=== PATIENT | male | born 1945 | race Hispanic/Latino ===

== ENCOUNTER 2016-10-31 16:50 | Emergency (ER) | payer MEDICARE ==
[2016-10-31 18:01] LABS: Hemoglobin 12.8 gm/dl (11.8-15.2); Mean Corpuscular HGB Conc 33 % (32-34); Mean Corpuscular Hemoglobin 31 pg (28-32); Mean Corpuscular Volume 96 fl (84-94); Platelet Count 215 K/mm3 (140-440); Red Blood Count 4.08 M/mm3 (3.65-5.03); Red Cell Distribution Width 14.8 % (13.2-15.2); White Blood Count 14.1 K/mm3 (4.5-11.0)
[2016-10-31 18:18] LABS: Anion Gap 19 mmol/L; BUN/Creatinine Ratio 23.63; Blood Urea Nitrogen 26 mg/dL (9-20); Calcium 9.3 mg/dL (8.4-10.2); Carbon Dioxide 25 mmol/L (22-30); Chloride 101.6 mmol/L (98-107); Glucose 164 mg/dL (75-100); Potassium 4.3 mmol/L (3.6-5.0); Sodium 141 mmol/L (137-145)
--- NOTE | 2016-10-31 19:42 | Ultrasound Report ---
FINAL REPORT EXAM: US TESTICULAR DOPPLER COMP HISTORY: left testicular swelling/pain TECHNIQUE: Ultrasound scrotum PRIORS: None. FINDINGS: Right testicle is 4.2 x 1.9 x 3.0 centimeters. There is normal vascular flow on pulsed and color Doppler evaluation. There is normal echogenicity. The right epididymal head is unremarkable Left testicle is 3.6 x 2.4 x 2.7 centimeters. There is normal echogenicity on Doppler evaluation normal parenchymal echogenicity The left epididymis is markedly enlarged. It demonstrates heterogeneous echogenicity increased vascular flow Small right hydrocele noted. IMPRESSION: Marked enlargement and hyperemia left epididymis most consistent with epididymitis Small left hydrocele
[2016-11-01 01:14] LABS: Bacteria,Urine 1+ /HPF (Negative); Bilirubin,Urine NEG (Negative); Blood,Urine NEG (Negative); Ketones,Urine TR mg/dL (Negative); Leukocyte Esterase,Urine TR (Negative); Mucus,Urine FEW /HPF; Nitrite,Urine NEG (Negative)
[2016-11-01] MEDS ORDERED: MOTRIN PO ONE (05:56)
[2016-11-01] MEDS ORDERED: ROXICODONE PO ONE (05:57)
[2016-11-01] MEDS ORDERED: LEVAQUIN PO ONE (06:18)
[2016-11-01] MEDS ORDERED: TORADOL IM ONE (06:36)
--- NOTE | 2016-11-01 06:45 | Emergency Department Report ---
ED Male HPI - General Chief complaint: Urogenital-Male Stated complaint: ENLARGED TESTICALS/ Time Seen by Provider: 11/01/16 06:17 Source: patient Mode of arrival: Ambulatory Limitations: No Limitations - History of Present Illness Initial comments: 71-year-old male with a past medical history of chronic back pain and aortic iliac femoral bypass 2005 and swelling for 2 days. Patient is constant, aching and throbbing rated 10/10 intensity. Rest and movement and palpation. Patient denies fever, dysuria, hematuria, or vomiting. He is not a diabetic. Denies any recent injury. Patient is on Flomax this unclear if he has BPH. He states he was started on the medication after a bout of urinary retention. - Related Data Home Medications Medication Instructions Recorded Confirmed Last Taken Amitriptyline [Elavil] 50 mg PO QHS 06/03/16 06/03/16 06/02/16 Aspirin [Adult Low Dose Aspirin EC] 81 mg PO QDAY 06/03/16 06/03/16 06/02/16 Finasteride [Proscar] 5 mg PO QDAY 06/03/16 06/03/16 06/02/16 Gabapentin [Neurontin] 600 mg PO TID 06/03/16 06/03/16 06/02/16 ISOSORBIDE MONOnitrate [Imdur ER] 30 mg PO QDAY 06/03/16 06/03/16 06/02/16 Ibandronate Sodium [Boniva] 150 mg PO QMONTH 06/03/16 06/03/16 1 Month Ago Metoprolol [Lopressor TAB] 25 mg PO BID 06/03/16 06/03/16 06/02/16 [place]-3 Fatty Acids [Fish Oil] 300 mg PO QDAY 06/03/16 06/03/16 06/02/16 Oxycodone-Acetaminophn 5-325/5 10 - 325 mg PO TID 06/03/16 06/03/16 06/02/16 23: 30 Pantoprazole [Protonix TAB] 40 mg PO QDAY 06/03/16 06/03/16 06/02/16 Rosuvastatin Calcium [Crestor] 40 mg PO QDAY 06/03/16 06/03/16 06/02/16 Tamsulosin [Flomax] 0.4 mg PO QDAY 06/03/16 06/03/16 06/02/16 Previous Rx's Medication Instructions Recorded Last Taken Type Ibuprofen [Motrin] 600 mg PO Q8H PRN #30 tablet 11/01/16 Unknown Rx Levofloxacin [Levaquin TAB] 500 mg PO QDAY #10 tablet 11/01/16 Unknown Rx oxyCODONE /ACETAMINOPHEN [Percocet 1 tab PO Q6HR PRN #20 tablet 11/01/16 Unknown Rx 5/325] Allergies Allergy/AdvReac Type Severity Reaction Status Date / Time No Known Allergies Allergy Verified 06/12/15 14:03 ED Review of Systems ROS: Stated complaint: ENLARGED TESTICALS/ Other details as noted in HPI Comment: All other systems reviewed and negative Other: Constitutional: No fevers chills or weight loss Eyes: No eye pain visual changes or discharge ENT: No ear pain or throat pain Neck: Denies pain Respiratory: Denies cough wheezing shortness of breath Cardiovascular: Denies chest pain, palpitations, syncope GI: Denies abdominal pain, nausea, vomiting, diarrhea : Denies dysuria, urinary frequency, or urgency Musculoskeletal: Denies back pain, joint swelling Skin: Denies rash, lesions, erythema Neurologic: Denies headache, numbness, weakness Psychiatric: Denies suicidal ideation, hallucinations ED Past Medical Hx - Past Medical History Previous Medical History?: Yes Hx Hypertension: No Hx Heart Attack/AMI: No Hx Congestive Heart Failure: No Hx Arthritis: Yes Hx Asthma: No Hx COPD: No Hx HIV: No Additional medical history: chronic back pain - Surgical History Past Surgical History?: Yes Hx Open Heart Surgery: Yes (AORTIC ILLIAC FEMORAL BYPASS 2004) - Social History Smoking Status: Current Every Day Smoker Substance Use Type: None - Medications Home Medications: Home Medications Medication Instructions Recorded Confirmed Last Taken Type Amitriptyline [Elavil] 50 mg PO QHS 06/03/16 06/03/16 06/02/16 History Aspirin [Adult Low Dose Aspirin EC] 81 mg PO QDAY 06/03/16 06/03/16 06/02/16 History Finasteride [Proscar] 5 mg PO QDAY 06/03/16 06/03/16 06/02/16 History Gabapentin [Neurontin] 600 mg PO TID 06/03/16 06/03/16 06/02/16 History ISOSORBIDE MONOnitrate [Imdur ER] 30 mg PO QDAY 06/03/16 06/03/16 06/02/16 History Ibandronate Sodium [Boniva] 150 mg PO QMONTH 06/03/16 06/03/16 1 Month Ago History Metoprolol [Lopressor TAB] 25 mg PO BID 06/03/16 06/03/16 06/02/16 History [place]-3 Fatty Acids [Fish Oil] 300 mg PO QDAY 06/03/16 06/03/16 06/02/16 History Oxycodone-Acetaminophn 5-325/5 10 - 325 mg PO TID 06/03/16 06/03/16 06/02/16 23: 30 History Pantoprazole [Protonix TAB] 40 mg PO QDAY 06/03/16 06/03/16 06/02/16 History Rosuvastatin Calcium [Crestor] 40 mg PO QDAY 06/03/16 06/03/16 06/02/16 History Tamsulosin [Flomax] 0.4 mg PO QDAY 06/03/16 06/03/16 06/02/16 History Ibuprofen [Motrin] 600 mg PO Q8H PRN #30 tablet 11/01/16 Unknown Rx Levofloxacin [Levaquin TAB] 500 mg PO QDAY #10 tablet 11/01/16 Unknown Rx oxyCODONE /ACETAMINOPHEN [Percocet 1 tab PO Q6HR PRN #20 tablet 11/01/16 Unknown Rx 5/325] ED Physical Exam - General Limitations: No Limitations - Other Other exam information: General: No limitations, patient is alert in no acute distress Head exam: Atraumatic, normocephalic Eyes exam: Normal appearance, pupils equal reactive to light, extraocular movements intact ENT: Moist mucous membrane, normal oropharynx Neck exam: Normal inspection, full range of motion, no meningismus nontender Respiratory exam: Clear to auscultation bilateral, no wheezes, rales, crackles Cardiovascular: Normal rate and rhythm, normal heart sounds Abdomen: Soft, nondistended, and nontender, with normal bowel sounds, no rebound, or guarding : Left scrotal erythema and edema with tenderness to the scrotum and testicle. Circumcised. No penile discharge or lesions Extremity: Full range of motion normal inspection no deformity Back: Normal Inspection, full range of motion, no tenderness Neurologic: Alert, oriented x3, cranial nerves intact, no motor or sensory deficit Psychiatric: normal affect, normal mood Skin: Warm, dry, intact ED Course Vital Signs 10/31/16 11/01/16 17:11 05:39 Temperature 98.8 F 98.0 F Pulse Rate 102 H 69 Respiratory 18 14 Rate Blood Pressure 149/77 145/85 O2 Sat by Pulse 99 97 Oximetry - Reevaluation(s) Reevaluation #1: 11/01/16 06:46 Levaquin 500 mg by mouth initiated in the ED the patient received Toradol IM since he will be driving home ED Medical Decision Making - Lab Data Result diagrams: 10/31/16 17:46 10/31/16 17:46 Lab Results 10/31/16 10/31/16 10/31/16 Range/Units 00:00 17:46 17:46 WBC 14.1 H (4.5-11.0) K/mm3 RBC 4.08 (3.65-5.03) M/mm3 Hgb 12.8 (11.8-15.2) gm/dl Hct 39.0 (35.5-45.6) % MCV 96 H (84-94) fl MCH 31 (28-32) pg MCHC 33 (32-34) % RDW 14.8 (13.2-15.2) % Plt Count 215 (140-440) K/mm3 Sodium 141 (137-145) mmol/L Potassium 4.3 (3.6-5.0) mmol/L Chloride 101.6 (98-107) mmol/L Carbon Dioxide 25 (22-30) mmol/L Anion Gap 19 mmol/L BUN 26 H (9-20) mg/dL Creatinine 1.1 (0.8-1.5) mg/dL Estimated GFR > 60 ml/min BUN/Creatinine Ratio 23.63 % Glucose 164 H (75-100) mg/dL Calcium 9.3 (8.4-10.2) mg/dL Urine Color Yellow (Yellow) Urine Turbidity Clear (Clear) Urine pH 6.0 (5.0-7.0) Ur Specific [place] 1.023 (1.003-1.030) Urine Protein 30 mg/dl (Negative) mg/dL Urine Glucose (UA) Neg (Negative) mg/dL Urine Ketones Tr (Negative) mg/dL Urine Blood Neg (Negative) Urine Nitrite Neg (Negative) Urine Bilirubin Neg (Negative) Urine Urobilinogen 2.0 (<2.0) mg/dL Ur Leukocyte Esterase Tr (Negative) Urine WBC (Auto) 20.0 H (0.0-6.0) /HPF Urine RBC (Auto) 7.0 (0.0-6.0) /HPF U Epithel Cells (Auto) 1.0 (0-13.0) /HPF Urine Bacteria (Auto) 1+ (Negative) /HPF Urine Mucus Few /HPF - Radiology Data Radiology results: report reviewed CT abdomen and pelvis IV contrast: Marked Enlargement and hyperemia of the left epididymis most consistent with epididymitis. Small left hydrocele - Medical Decision Making Plan to discharge patient on treatment for epididymitis and referral - Differential Diagnosis epididymitis, orchitis, cellulitis, UTI, torsion Critical Care Time: No Critical care attestation.: If time is entered above; I have spent that time in minutes in the direct care of this critically ill patient, excluding procedure time. ED Disposition Clinical Impression: Epididymitis Disposition: DISCHARGED TO HOME OR SELFCARE Is pt being admited?: No Does the pt Need Aspirin: No Condition: Stable Instructions: Epididymitis (ED) Additional Instructions: Take the medication as prescribed. Return if symptoms worsen Prescriptions: Ibuprofen [Motrin] 600 mg PO Q8H PRN #30 tablet PRN Reason: Pain Levofloxacin [Levaquin TAB] 500 mg PO QDAY #10 tablet oxyCODONE /ACETAMINOPHEN [Percocet 5/325] 1 tab PO Q6HR PRN #20 tablet PRN Reason: Pain Referrals: RENETTA RENAE MD [Staff Physician] - 3-5 Days (Urologist ) Forms: STI Treatment and Prevention Time of Disposition: 06:48
[2016-11-01 07:05] VITALS: BP 136/84
== END 2016-11-01 07:05 | disposition home or self-care (01) ==
LOC: ED 16:50
DX: N45.1 Epididymitis (principal); M19.90 Unspecified osteoarthritis, unspecified site; G89.29 Other chronic pain; F17.200 Nicotine dependence, unspecified, uncomplicated; Z79.82 Long term (current) use of aspirin
CPT/HCPCS: 36415; 80048; 81001; 85027; 87076; 87086; 87186; 93975; 96372; 99284; J1885